=== PATIENT | female | born 1945 | race Caucasian/White ===

== ENCOUNTER → 2019-03-07 | Outpatient (CLI) | payer MEDICARE ==
--- NOTE | 2019-03-07 14:10 | Diagnostic Imaging Report ---
INDICATION: Pre-MRI screening. Time of exam 2:03 PM Dual lead left subclavian cardiac pacer is in place with lead tips in region of right atrium and right ventricle. No abandoned leads are identified. The lungs are clear. There is no effusion or pneumothorax. IMPRESSION: No evidence of of abandoned pacer leads. Dictated by: Dictated on workstation # [id number]
--- NOTE | 2019-03-07 15:44 | Diagnostic Imaging Report ---
PROCEDURE: MRI lumbar spine. TECHNIQUE: Multiplanar, multisequence MRI of the lumbar spine was performed without contrast. INDICATION: Low back pain. COMPARISON: No prior MRI lumbar spine studies are available for comparison. FINDINGS: There appears to be a transitional lumbosacral vertebral body. Please see images for appropriate labeling. Curvature of the lumbar spine is normal. There is minimal retrolisthesis of L3 on L4 and minimal anterolisthesis of L5 on S1. Vertebral body heights are maintained. No acute compression fracture or geographic marrow lesion is identified. There is multilevel degenerative disc disease with variable disc space narrowing and desiccation. Conus is unremarkable at approximately L1-L2 level. L1-L2: Central canal is widely patent. Neural foramina are patent. L2-L3: Central canal is patent. Neural foramina are patent. L3-L4: Broad-based disc/osteophyte complex indents the ventral thecal sac. There is moderate central canal stenosis. There is significant narrowing of bilateral lateral recesses. There is a prominent right para-midline disc bulge narrowing to the right lateral recess. There is moderate bilateral neural foraminal stenosis. L4-L5: Marked hypertrophic facet changes and ligamentous thickening is noted as well as broad-based disc/osteophyte complex. This results in severe trefoil stenosis of the central canal. There is also severe bilateral lateral recess stenosis and moderate bilateral neural foraminal stenosis. L5-S1: Marked hypertrophic facet changes and ligamentous thickening is noted. There is broad-based disc/osteophyte complex, asymmetric in the midline and left posterolateral region. This results in severe central canal stenosis.. There is severe left and moderate right lateral recess stenosis as well as severe left neural foraminal stenosis. Paraspinous tissues are unremarkable. IMPRESSION: Severe lumbar spondylosis with multilevel central canal, lateral recess and neural foraminal stenosis described level by level above. Please see sagittal images for appropriate labeling due to transitional lumbosacral vertebral bodies. No acute compression fracture is identified. Dictated by: Dictated on workstation # [id number]
--- NOTE | 2019-03-07 15:50 | Diagnostic Imaging Report ---
PROCEDURE: MR imaging cervical spine without contrast. TECHNIQUE: Multiplanar, multisequence MR imaging of the cervical spine was performed without contrast. DATE: March 07, 2019. COMPARISON: None. INDICATION: 74-year-old female, neck and right shoulder pain. FINDINGS: There is normal cervical spine alignment. There is no evidence of a diffuse marrow infiltrating or replacing process. There is no identified concerning focal bone lesion. There are multilevel mild endplate degenerative related changes of the cervical spine. There is no identified abnormal signal in the visualized portions of the spinal cord. There is mild disc height loss at C3-C4, C4-C5 and C6-C7. There is mild to moderate disc height loss at C5-C6. C2-C3: There is no disc bulge. The uncovertebral and facet joints are unremarkable. There is no foraminal narrowing. There is no spinal canal stenosis. C3-C4: There is a small posterior disc osteophyte complex. The uncovertebral and facet joints are unremarkable. There is no foraminal narrowing. There is no spinal canal stenosis. C4-C5: There is a small posterior disc osteophyte complex. The uncovertebral and facet joints are unremarkable. There is no high-grade foraminal narrowing. There is moderate to severe spinal canal stenosis. C5-C6: There is a large posterior disc osteophyte complex. There are right greater than left uncovertebral degenerative changes. The facet joints are unremarkable. There is severe right and moderate to severe left foraminal narrowing. There is severe spinal stenosis with cord compression. There is no current abnormal signal in the spinal cord. C6-C7: There is a posterior disc osteophyte complex. There are bilateral uncovertebral degenerative changes. There is no foraminal narrowing. There is severe spinal canal stenosis with mild cord compression. There is no current abnormal cord signal at this level. C7-T1: There is no disc bulge. The uncovertebral and facet joints are unremarkable. There is no foraminal narrowing. There is no spinal canal stenosis. IMPRESSION: Multilevel disc and uncovertebral degenerative changes of the cervical spine including levels of high-grade spinal stenosis and cord compression without current abnormal cord signal. Level by level analysis is as above. Report was called and faxed to the office of ESTEVAN Dunaway at 3:46 p.m., by anali. Dictated by: Dictated on workstation # [id number]
== END ==
LOC: RAD 02-18 14:13
PROVIDERS: ATTEND Physician Assistant
DX: M47.812 Spondylosis without myelopathy or radiculopathy, cervical region (principal); M48.02 Spinal stenosis, cervical region; M25.78 Osteophyte, vertebrae; M50.31 Other cervical disc degeneration, high cervical region; G95.20 Unspecified cord compression; M47.817 Spondylosis without myelopathy or radiculopathy, lumbosacral region; M48.07 Spinal stenosis, lumbosacral region; M51.36 Other intervertebral disc degeneration, lumbar region; Z95.0 Presence of cardiac pacemaker
CPT/HCPCS: 71045; 72141; 72148